=== PATIENT | female | born 1995 | race Two or more races ===

== ENCOUNTER 2018-07-10 16:50 | Emergency (ER) | payer OTHER ==
[~2018-07-10] VITALS: Ht 170.2 cm; Wt 79.4 kg
== END 2018-07-10 19:53 | disposition home or self-care (01) ==
LOC: ER 16:50
DX: S50.811A Abrasion of right forearm, initial encounter (principal); W55.03XA Scratched by cat, initial encounter; Y93.89 Activity, other specified; Y92.89 Other specified places as the place of occurrence of the external cause; Y99.8 Other external cause status